=== PATIENT | male | born 1940 | race Caucasian/White ===

== ENCOUNTER 2025-08-18 11:32 | Inpatient (IN) | payer MEDICARE, BC ==
[~2025-08-18] VITALS: Ht 170.2 cm; Wt 78.0 kg
[2025-08-18] MEDS ORDERED: OLAN2.5T3 PO (12:06)
[2025-08-18] MEDS ORDERED: HYDR-894 PO (12:06)
[2025-08-18] MEDS ORDERED: INSU100V7 SQ (12:06)
[2025-08-18] MEDS ORDERED: METO25TA6 PO (12:06)
[2025-08-18] MEDS ORDERED: FINA5TAB11 PO (12:06)
[2025-08-18] MEDS ORDERED: DOCU100C36 PO (12:06)
[2025-08-18] MEDS ORDERED: BETH25TA2 PO (12:06)
[2025-08-18] MEDS ORDERED: TAMS-3 PO (12:06)
[2025-08-18] MEDS ORDERED: FERR220S6 PO (12:06)
[2025-08-18] MEDS ORDERED: ATOR10TA PO (12:06)
[2025-08-18] MEDS ORDERED: AMLO-212 PO (12:06)
[2025-08-18] MEDS ORDERED: APIX2.5T PO (12:06)
[2025-08-18] MEDS ORDERED: INSU100V SQ (12:06)
[2025-08-18] MEDS ORDERED: CEFTRIAXONE /D5W 50ML IVPB **ER PYXIS IV ONE (12:12)
[2025-08-18] MEDS: IV NORMAL SALINE 1000 ML BAG IV ONE (12:15)
[2025-08-18 12:16] LABS: ABG BASE EXCESS -1.4 mmol/L (-2.0-3.0); ABG HCO3 21.5 mmol/L (21.0-28.0); ABG PCO2 31.6 mmHg (35.0-48.0); ABG PH 7.451 (7.350-7.450); ABG PO2 85.5 mmHg (83.0-108.0); ABG SITE RIGHT RADIAL; ABG TOTAL HEMOGLOBIN 14.8 G/dL (13.5-17.5); AaDO2 97.0 mmHg; FIO2 21.0 %
[2025-08-18 12:21] LABS: PLATELET COUNT (AUTO) 213 K/uL (152-348); RED BLOOD CELL COUNT(AUTO) 5.01 MIL/uL (4.06-5.63); RED CELL DISTRIBUTION WIDTH 15.1 % (12.1-16.2); WHITE BLOOD COUNT (AUTO) 6.6 K/uL (3.6-10.2)
[2025-08-18 12:47] LABS: *BILIRUBIN,URIN NEGATIVE (NEGATIVE); *BLOOD, URINE 2+ (NEGATIVE); *CLARITY,URINE CLEAR (CLEAR); *COLOR,URINE YELLOW (YELLOW); *KETONES,URINE 1+ (NEGATIVE); *PROTEIN,URINE 1+ (NEGATIVE); *UROBILINOGEN,URINE 0.2 E.U./dl (NORMAL); LEUKOCYTE ESTERASE ,URINE TRACE (NEGATIVE); NITRITE, URINE NEGATIVE (NEGATIVE)
[2025-08-18 12:49] LABS: ASPARTATE AMINOTRANSFERASE 9 U/L (15-37); CREATININE 2.2 mg/dL (0.6-1.3); SODIUM SERUM 144 mmol/L (136-145); TOTAL PROTEIN, SERUM 8.1 g/dL (6.4-8.2); UREA NITROGEN, BLOOD 45 mg/dL (7-18)
[2025-08-18 12:50] LABS: LACTIC ACID 2.2 mmol/L (0.4-2.0)
[2025-08-18 12:54] LABS: UGLUCOSE 3+ (NEGATIVE)
[2025-08-18] MEDS ORDERED: INSULIN REGULAR, HUMAN 1000 UNIT/10 ML VIAL ONE (13:14)
[2025-08-18 13:15] LABS: SQUAMOUS EPITHELIAL CELL,UR FEW /HPF (NONE SEEN)
[2025-08-18 13:18] LABS: *OCCULT BLOOD STOOL POSITIVE (NEGATIVE)
[2025-08-18] MEDS: INSULIN REGULAR, HUMAN 1000 UNIT/10 ML VIAL IV ONE (13:18)
[2025-08-18] MEDS ORDERED: ONDANSETRON 4 MG/2 ML VIAL IV PRN (13:30)
[2025-08-18] MEDS ORDERED: ACETAMINOPHEN 325 MG TABLET PO PRN (13:30)
[2025-08-18] MEDS ORDERED: MAGNESIUM HYDROXIDE 30 ML LIQUID UDC PO PRN (13:30)
[2025-08-18] MEDS ORDERED: REMEDY ESSENTIAL ZINC PASTE 113 GM TP PRN (13:30)
[2025-08-18] MEDS ORDERED: DEXTROSE 50% 50 ML DISP.SYRIN IV PRN (14:00)
[2025-08-18] MEDS ORDERED: ALBU2.5V38 IH (14:31)
[2025-08-18] MEDS ORDERED: MULT-1045 PO (14:31)
[2025-08-18] MEDS ORDERED: CHOL-35 PO (14:31)
[2025-08-18] MEDS ORDERED: BISA10SU95 RC (14:31)
[2025-08-18] MEDS ORDERED: INSULIN GLARGINE,HUM 300 UNITS/3 ML CARTRIDGE SQ SCH (15:00)
[2025-08-18 15:40] VITALS: BP 128/73; TEMP 98.3
[2025-08-18 16:18] VITALS: BP 128/73; TEMP 98.3
[2025-08-18] MEDS: IV NS 1000 ML 1,000 ML IV PRN (16:29)
[2025-08-18] MEDS: BLOOD SUGAR DIAGNOSTIC 1 EACH STRIP VI SCH (16:38)
[2025-08-18] MEDS: INSULIN REGULAR, HUMAN 1000 UNIT/10 ML VIAL SQ PRN (16:45)
[2025-08-18] MEDS: INSULIN REGULAR, HUMAN 1000 UNIT/10 ML VIAL SQ SCH (17:00)
[2025-08-18] MEDS: CHOLECALCIFEROL 1,000 UNIT TABLET PO SCH (17:20)
[2025-08-18] MEDS: OLANZAPINE 2.5 MG TABLET PO SCH (17:21)
[2025-08-18] MEDS: METOPROLOL TARTRATE 25 MG TABLET PO SCH (17:21)
[2025-08-18] MEDS: TAMSULOSIN HCL 0.4 MG CAP.SR.24H PO SCH (17:21)
[2025-08-18] MEDS: DOCUSATE SODIUM 100 MG CAPSULE PO SCH (17:33)
[2025-08-18 17:52] LABS: PLATELET COUNT (AUTO) 195 K/uL (152-348); RED BLOOD CELL COUNT(AUTO) 4.62 MIL/uL (4.06-5.63); RED CELL DISTRIBUTION WIDTH 15.1 % (12.1-16.2); WHITE BLOOD COUNT (AUTO) 6.5 K/uL (3.6-10.2)
[2025-08-18] MEDS: BETHANECHOL CHLORIDE 25 MG TABLET GT SCH (18:18)
[2025-08-18 19:00] VITALS: BP 135/67; TEMP 97.5; O2SAT 96
[2025-08-18 19:50] LABS: BAND % (MANUAL) 1 % (0-10); EOSINOPHILS % (MANUAL) 1 % (0-8); LYMPHOCYTES % (MANUAL) 15 % (20-40); MONOCYTES % (MANUAL) 10 % (2-10); NEUTROPHILS % (MANUAL) 73 % (42-75); PLATELET ESTIMATE ADEQUATE
[2025-08-18] MEDS: PANTOPRAZOLE SODIUM 40 MG VIAL IV SCH (20:18)
[2025-08-18] MEDS: SUCRALFATE 1 G/10 ML LIQUID UDC GT SCH (20:19)
[2025-08-18] MEDS: ATORVASTATIN 10 MG TABLET PO SCH (20:19)
[2025-08-18] MEDS: INSULIN GLARGINE,HUM 300 UNITS/3 ML CARTRIDGE SQ SCH (20:26)
[2025-08-18] MEDS: INSULIN REGULAR, HUMAN 300 UNITS/3 ML VIAL SQ PRN (20:38)
[2025-08-19] VITALS: BP 123/71; TEMP 98; O2SAT 95
[2025-08-19 04:00] VITALS: BP 149/73; TEMP 97.7; O2SAT 95
[2025-08-19 06:13] LABS: PLATELET COUNT (AUTO) 179 K/uL (152-348); RED BLOOD CELL COUNT(AUTO) 4.29 MIL/uL (4.06-5.63); RED CELL DISTRIBUTION WIDTH 15.2 % (12.1-16.2); WHITE BLOOD COUNT (AUTO) 5.1 K/uL (3.6-10.2)
[2025-08-19 06:27] LABS: CREATININE 1.8 mg/dL (0.6-1.3); SODIUM SERUM 153 mmol/L (136-145); UREA NITROGEN, BLOOD 41 mg/dL (7-18)
[2025-08-19 08:00] VITALS: BP 145/78; TEMP 98.5; O2SAT 92
[2025-08-19] MEDS: MULTIVITAMINS,THERAPEUTIC TABLET PO SCH (08:42)
[2025-08-19] MEDS: FINASTERIDE 5 MG TABLET PO SCH (08:42)
[2025-08-19] MEDS: AMLODIPINE 5 MG TABLET PO SCH (08:43)
[2025-08-19 12:00] VITALS: BP 109/70; TEMP 97.5; O2SAT 93
[2025-08-19 16:14] VITALS: BP 137/68; TEMP 97.5; O2SAT 96
[2025-08-19 19:00] VITALS: BP 104/57; TEMP 97.7; O2SAT 96
[2025-08-19] MEDS: TRAZODONE 50 MG TABLET PO PRN (21:59)
[2025-08-20 04:30] VITALS: BP 138/81; TEMP 98.4; O2SAT 96
[2025-08-20 06:42] LABS: PLATELET COUNT (AUTO) 158 K/uL (152-348); RED BLOOD CELL COUNT(AUTO) 4.09 MIL/uL (4.06-5.63); RED CELL DISTRIBUTION WIDTH 15.4 % (12.1-16.2); WHITE BLOOD COUNT (AUTO) 4.7 K/uL (3.6-10.2)
[2025-08-20 06:54] LABS: CREATININE 1.5 mg/dL (0.6-1.3); SODIUM SERUM 149 mmol/L (136-145); UREA NITROGEN, BLOOD 39 mg/dL (7-18)
[2025-08-20 08:00] VITALS: BP 153/82; TEMP 98.7; O2SAT 96
[2025-08-20 11:41] VITALS: BP 120/78; TEMP 97.3; O2SAT 96
[2025-08-20] MEDS: IV 1/2NS 1000 ML 1,000 ML IV SCH (14:26)
[2025-08-20] MEDS: SUCRALFATE 1 G TABLET GT SCH (16:23)
[2025-08-20 16:39] VITALS: BP 138/79; TEMP 97.3; O2SAT 94
[2025-08-20] MEDS: BETHANECHOL CHLORIDE 25 MG TABLET PO SCH (17:58)
[2025-08-20 20:00] VITALS: BP 140/78; TEMP 98.1; O2SAT 93
[2025-08-20] MEDS: SUCRALFATE 1 G TABLET PO SCH (21:04)
[2025-08-21] VITALS: BP 137/76; TEMP 97.7; O2SAT 95
[2025-08-21 04:00] VITALS: BP 135/67; TEMP 98.8; O2SAT 95
[2025-08-21 06:28] LABS: PLATELET COUNT (AUTO) 141 K/uL (152-348); RED BLOOD CELL COUNT(AUTO) 3.61 MIL/uL (4.06-5.63); RED CELL DISTRIBUTION WIDTH 14.5 % (12.1-16.2); WHITE BLOOD COUNT (AUTO) 4.9 K/uL (3.6-10.2)
[2025-08-21 06:39] LABS: CREATININE 1.3 mg/dL (0.6-1.3); SODIUM SERUM 141 mmol/L (136-145); UREA NITROGEN, BLOOD 29 mg/dL (7-18)
[2025-08-21] MEDS: PANTOPRAZOLE SODIUM 40 MG TABLET.DR PO SCH (07:06)
[2025-08-21 08:00] VITALS: BP 156/79; TEMP 97.9; O2SAT 95
[2025-08-21 13:04] VITALS: BP 126/68; TEMP 97.5
[2025-08-21 17:21] VITALS: BP 147/80; TEMP 97.9; O2SAT 95
[2025-08-21] MEDS: IV 1/2NS 1000 ML 1,000 ML IV PRN (18:20)
[2025-08-21] MEDS: TRAZODONE 50 MG TABLET PO SCH (20:03)
[2025-08-21 20:21] VITALS: BP 127/81; TEMP 98.1; O2SAT 95
[2025-08-21] MEDS: QUETIAPINE FUMARATE 25 MG TABLET PO SCH (21:30)
[2025-08-21] MEDS: OLANZAPINE 10 MG VIAL IM PRN (21:49)
[2025-08-22 03:09] LABS: *MICROALBUMIN, UR 283.7 ug/mL (Not Estab.); CREATININE, URINE 139.2 mg/dL (Not Estab.); MICROALBUMIN/CREAT RATIO, UR 204.0 mg/g creat (0-29)
[2025-08-22 05:38] VITALS: BP 131/71; TEMP 98.5; O2SAT 96
[2025-08-22] MEDS: GLUCERNA SHAKE 237 ML CAN PO SCH (08:45)
[2025-08-22 08:49] VITALS: BP 156/80; TEMP 98; O2SAT 92
[2025-08-22 10:52] LABS: PLATELET COUNT (AUTO) 177 K/uL (152-348); RED BLOOD CELL COUNT(AUTO) 3.95 MIL/uL (4.06-5.63); RED CELL DISTRIBUTION WIDTH 14.8 % (12.1-16.2); WHITE BLOOD COUNT (AUTO) 5.6 K/uL (3.6-10.2)
[2025-08-22 10:59] LABS: CREATININE 1.3 mg/dL (0.6-1.3); SODIUM SERUM 142 mmol/L (136-145); UREA NITROGEN, BLOOD 24 mg/dL (7-18)
[2025-08-22] MEDS ORDERED: SULF1TAB48 PO (12:59)
[2025-08-22] MEDS ORDERED: SUCR1ORA PO (13:04)
[2025-08-22] MEDS ORDERED: PANT40TA2 PO (13:04)
[2025-08-22 15:14] VITALS: BP 131/86; TEMP 98; O2SAT 96
[2025-08-22 16:42] VITALS: BP 133/79
== END 2025-08-22 17:00 | DRG 871 ==
LOC: ER 11:32 → TELE3 15:04 → MEDSURG3 08-21 10:35
PROVIDERS: ADMIT Nurse Practitioner Acute Care; ATTEND Nurse Practitioner Acute Care
DX: A41.59 Other Gram-negative sepsis (principal); G93.41 Metabolic encephalopathy; E87.20 Acidosis, unspecified; E87.0 Hyperosmolality and hypernatremia; I24.89 Other forms of acute ischemic heart disease; E86.0 Dehydration; I48.91 Unspecified atrial fibrillation; E11.65 Type 2 diabetes mellitus with hyperglycemia; D50.9 Iron deficiency anemia, unspecified; N17.9 Acute kidney failure, unspecified; N39.0 Urinary tract infection, site not specified; R65.20 Severe sepsis without septic shock; Z79.01 Long term (current) use of anticoagulants; B96.1 Klebsiella pneumoniae [K. pneumoniae] as the cause of diseases classified elsewhere; I50.32 Chronic diastolic (congestive) heart failure; G20.A1 Parkinson's disease without dyskinesia, without mention of fluctuations; Z79.4 Long term (current) use of insulin; E86.1 Hypovolemia; Z95.0 Presence of cardiac pacemaker; R19.4 Change in bowel habit; I44.7 Left bundle-branch block, unspecified; Z79.899 Other long term (current) drug therapy; Z66 Do not resuscitate; Z78.1 Physical restraint status; K29.70 Gastritis, unspecified, without bleeding
CPT/HCPCS: 36415; 36600; 70030-TC; 70450; 71045; 82043; 82570; 83605; 83735; 84100; 84484; 85025; 85730; 86850; 86900; 86901; 87040; 87046; 87077; 87086; 89055; 93307; A4606; A4663; C1758; G0378; J0696; J1815; J2358; J2470; J7040

== ENCOUNTER 2025-09-06 13:19 | Inpatient (IN) | payer MEDICARE, BC ==
[~2025-09-06] VITALS: Ht 170.2 cm; Wt 77.1 kg
[~2025-09-06 13:19] MED LIST: ALBU2.5V38 IH; AMLO-212 PO; ATOR10TA PO; BETH25TA3 PO; CHOL-35 PO; DOCU100C36 PO; FERR220E3 PO; FINA5TAB11 PO; HYDR-5156 PO; INSU100V SQ; INSU100V7 SQ; METO25TA6 PO; MULT-1045 PO; PANT40TA2 PO; SUCR1ORA PO; SULF1TAB48 PO; TAMS0.4C PO; [UNRECOGNIZED DRUG - CODE] PO; [UNRECOGNIZED DRUG - CODE] RC
[2025-09-06] MEDS ORDERED: ACET-2154 PO (13:42)
[2025-09-06] MEDS ORDERED: LIDOCAINE 2% (GLYDO= UROJET) 10 ML JELLY MM ONE (14:01)
[2025-09-06 14:02] LABS: PLATELET COUNT (AUTO) 152 K/uL (152-348); RED BLOOD CELL COUNT(AUTO) 4.07 MIL/uL (4.06-5.63); RED CELL DISTRIBUTION WIDTH 15.3 % (12.1-16.2); WHITE BLOOD COUNT (AUTO) 6.2 K/uL (3.6-10.2)
[2025-09-06] MEDS ORDERED: CEFTRIAXONE /D5W 50ML IVPB **ER PYXIS IV ONE (14:02)
[2025-09-06] MEDS: IV NORMAL SALINE 1000 ML BAG IV ONE (14:05)
[2025-09-06 14:20] LABS: ASPARTATE AMINOTRANSFERASE 13 U/L (15-37); CREATININE 1.7 mg/dL (0.6-1.3); LACTIC ACID 2.8 mmol/L (0.4-2.0); SODIUM SERUM 138 mmol/L (136-145); TOTAL PROTEIN, SERUM 6.3 g/dL (6.4-8.2); UREA NITROGEN, BLOOD 33 mg/dL (7-18)
[2025-09-06 14:25] LABS: ABG BASE EXCESS -1.0 mmol/L (-2.0-3.0); ABG HCO3 23.0 mmol/L (21.0-28.0); ABG PCO2 36.0 mmHg (35.0-48.0); ABG PH 7.424 (7.350-7.450); ABG PO2 69.9 mmHg (83.0-108.0); ABG SITE RIGHT RADIAL; ABG TOTAL HEMOGLOBIN 11.7 G/dL (13.5-17.5); AaDO2 94.5 mmHg; FIO2 21.0 %
[2025-09-06 14:34] VITALS: BP 145/81
[2025-09-06 14:36] LABS: *BILIRUBIN,URIN NEGATIVE (NEGATIVE); *BLOOD, URINE 2+ (NEGATIVE); *COLOR,URINE YELLOW (YELLOW); *KETONES,URINE NEGATIVE (NEGATIVE); *PROTEIN,URINE 3+ (NEGATIVE); *UROBILINOGEN,URINE 0.2 E.U./dl (NORMAL); LEUKOCYTE ESTERASE ,URINE 1+ (NEGATIVE); NITRITE, URINE NEGATIVE (NEGATIVE); UGLUCOSE 2+ (NEGATIVE)
[2025-09-06 14:38] LABS: *CLARITY,URINE TURBID (CLEAR)
[2025-09-06 14:53] LABS: SQUAMOUS EPITHELIAL CELL,UR FEW /HPF (NONE SEEN)
[2025-09-06] MEDS ORDERED: ACETAMINOPHEN 650 MG SUPP.RECT RC PRN (15:30)
[2025-09-06] MEDS ORDERED: ENOXAPARIN SODIUM 40 MG/0.4 ML DISP.SYRIN SQ SCH (15:30)
[2025-09-06] MEDS ORDERED: BISACODYL 10 MG SUPP.RECT RC PRN (15:30)
[2025-09-06] MEDS ORDERED: IV NS 1000 ML 1,000 ML IV SCH (15:30)
[2025-09-06] MEDS ORDERED: ONDANSETRON 4 MG/2 ML VIAL IV PRN (15:30)
[2025-09-06] MEDS ORDERED: MAGNESIUM HYDROXIDE 30 ML LIQUID UDC PO PRN (15:30)
[2025-09-06] MEDS ORDERED: ALBUTEROL SULFATE 2.5 MG/3 ML NEBU IH PRN (15:30)
[2025-09-06] MEDS ORDERED: DEXTROSE 50% 50 ML DISP.SYRIN IV PRN (15:30)
[2025-09-06 16:35] VITALS: BP 148/82; TEMP 97.8; O2SAT 97
[2025-09-06] MEDS: BLOOD SUGAR DIAGNOSTIC 1 EACH STRIP VI SCH (17:39)
[2025-09-06] MEDS: INSULIN REGULAR, HUMAN 1000 UNIT/10 ML VIAL SQ PRN (17:40)
[2025-09-06] MEDS: OLANZAPINE 2.5 MG TABLET PO SCH (17:54)
[2025-09-06] MEDS: CHOLECALCIFEROL 1,000 UNIT TABLET PO SCH (17:54)
[2025-09-06] MEDS: DOCUSATE SODIUM 100 MG CAPSULE PO SCH (17:54)
[2025-09-06] MEDS: FERROUS SULFATE 325 MG TABEC PO SCH (17:55)
[2025-09-06] MEDS: METOPROLOL TARTRATE 25 MG TABLET PO SCH (17:55)
[2025-09-06] MEDS: TAMSULOSIN HCL 0.4 MG CAP.SR.24H PO SCH (17:55)
[2025-09-06] MEDS: BETHANECHOL CHLORIDE 25 MG TABLET PO SCH (17:55)
[2025-09-06 19:25] VITALS: BP 141/81; TEMP 98.5; O2SAT 96
[2025-09-06] MEDS: ATORVASTATIN 10 MG TABLET PO SCH (20:56)
[2025-09-06] MEDS ORDERED: DOXYCYCLINE HYCLATE IV 100 MG in IV DEXTROSE 5% 100 ML IV SCH (21:00)
[2025-09-06] MEDS: ENOXAPARIN SODIUM 30 MG/0.3 ML DISP.SYRIN SUBCUT SCH (21:01)
[2025-09-06 22:11] VITALS: O2SAT 96
[2025-09-07 01:14] VITALS: BP 104/65; TEMP 97.9; O2SAT 97
[2025-09-07 04:40] VITALS: BP 127/74; TEMP 97.8; O2SAT 97
[2025-09-07 06:41] LABS: PLATELET COUNT (AUTO) 143 K/uL (152-348); RED BLOOD CELL COUNT(AUTO) 3.67 MIL/uL (4.06-5.63); RED CELL DISTRIBUTION WIDTH 15.5 % (12.1-16.2); WHITE BLOOD COUNT (AUTO) 6.3 K/uL (3.6-10.2)
[2025-09-07 06:55] LABS: CREATININE 1.4 mg/dL (0.6-1.3); SODIUM SERUM 138 mmol/L (136-145); UREA NITROGEN, BLOOD 24 mg/dL (7-18)
[2025-09-07] MEDS: PANTOPRAZOLE SODIUM 40 MG TABLET.DR PO SCH (07:38)
[2025-09-07 07:53] VITALS: BP 142/73; TEMP 98.3; O2SAT 97
[2025-09-07] MEDS: MULTIVITAMINS,THERAPEUTIC TABLET PO SCH (08:33)
[2025-09-07] MEDS: FINASTERIDE 5 MG TABLET PO SCH (08:33)
[2025-09-07] MEDS: AMLODIPINE 5 MG TABLET PO SCH (08:33)
[2025-09-07] MEDS: TAMSULOSIN HCL 0.4 MG CAP.SR.24H PO SCH (08:35)
[2025-09-07] MEDS: METOPROLOL TARTRATE 25 MG TABLET PO SCH (08:35)
[2025-09-07] MEDS ORDERED: PANTOPRAZOLE SODIUM 40 MG VIAL IV SCH (09:00)
[2025-09-07] MEDS: LIDOCAINE 2% (GLYDO= UROJET) 10 ML JELLY MM ONE (10:22)
[2025-09-07] MEDS: MAGNESIUM OXIDE 400 MG TABLET PO ONE (10:22)
[2025-09-07 11:17] VITALS: BP 112/70; TEMP 98.5; O2SAT 97
[2025-09-07] MEDS ORDERED: FERR-68 PO (13:09)
[2025-09-07 15:29] VITALS: BP 116/77; TEMP 97.8; O2SAT 95
[2025-09-07 19:20] VITALS: BP 141/75; TEMP 98.3; O2SAT 95
[2025-09-07] MEDS: INSULIN GLARGINE,HUM 300 UNITS/3 ML CARTRIDGE SQ SCH (20:29)
[2025-09-07] MEDS ORDERED: ENOXAPARIN SODIUM 40 MG/0.4 ML DISP.SYRIN SQ SCH (21:00)
[2025-09-08 00:05] VITALS: BP 146/83; TEMP 99.1; O2SAT 95
[2025-09-08 05:35] VITALS: BP 141/79; TEMP 98.7; O2SAT 96
[2025-09-08 07:54] LABS: PLATELET COUNT (AUTO) 129 K/uL (152-348); RED BLOOD CELL COUNT(AUTO) 3.60 MIL/uL (4.06-5.63); RED CELL DISTRIBUTION WIDTH 15.2 % (12.1-16.2); WHITE BLOOD COUNT (AUTO) 6.0 K/uL (3.6-10.2)
[2025-09-08 08:02] VITALS: BP 134/77; TEMP 98.4; O2SAT 96
[2025-09-08 08:09] LABS: CREATININE 1.1 mg/dL (0.6-1.3); SODIUM SERUM 138 mmol/L (136-145); UREA NITROGEN, BLOOD 20 mg/dL (7-18)
[2025-09-08 11:44] VITALS: BP 121/72; TEMP 98; O2SAT 98
[2025-09-08] MEDS: MAGNESIUM OXIDE 400 MG TABLET PO ONE (12:19)
[2025-09-08 15:04] VITALS: O2SAT 96
[2025-09-08 15:45] VITALS: BP 145/87; TEMP 98.5; O2SAT 98
[2025-09-08] MEDS ORDERED: CEFT1FRO2 IV (18:57)
[2025-09-08] MEDS ORDERED: MAGN400O6 PO (19:13)
== END 2025-09-08 18:33 | DRG 871 ==
LOC: ER 13:19 → TELE3 16:11 → MEDSURG3 09-08 10:25
DX: A41.59 Other Gram-negative sepsis (principal); G93.41 Metabolic encephalopathy; I21.A1 Myocardial infarction type 2; E44.0 Moderate protein-calorie malnutrition; F02.82 Dementia in other diseases classified elsewhere, unspecified severity, with psychotic disturbance; S09.90XA Unspecified injury of head, initial encounter; G20.A1 Parkinson's disease without dyskinesia, without mention of fluctuations; E11.65 Type 2 diabetes mellitus with hyperglycemia; D64.9 Anemia, unspecified; N39.0 Urinary tract infection, site not specified; R65.20 Severe sepsis without septic shock; B96.1 Klebsiella pneumoniae [K. pneumoniae] as the cause of diseases classified elsewhere; I11.0 Hypertensive heart disease with heart failure; I50.32 Chronic diastolic (congestive) heart failure; Z86.74 Personal history of sudden cardiac arrest; Z79.4 Long term (current) use of insulin; Z79.899 Other long term (current) drug therapy; I48.91 Unspecified atrial fibrillation; Z95.0 Presence of cardiac pacemaker; Z85.46 Personal history of malignant neoplasm of prostate; E86.0 Dehydration; W18.30XA Fall on same level, unspecified, initial encounter; Z91.81 History of falling; Y92.099 Unspecified place in other non-institutional residence as the place of occurrence of the external cause; R79.89 Other specified abnormal findings of blood chemistry; Z87.19 Personal history of other diseases of the digestive system
CPT/HCPCS: 36415; 36600; 70450; 71045; 72125; 83605; 83735; 84100; 84484; 85025; 85730; 87040; 87077; 87086; A4606; A4663; G0378; J0696; J1650; J1815; J7040

== ENCOUNTER 2025-09-08 14:58 | Inpatient (IN) | payer MEDICARE, BC ==
[~2025-09-08] VITALS: Ht 165.1 cm; Wt 64.9 kg
[~2025-09-08 14:58] MED LIST changes: +ACET-2154 PO; +FERR-68 PO; -FERR220E3 PO; -SUCR1ORA PO; -SULF1TAB48 PO
[2025-09-08 16:14] VITALS: BP 145/87; TEMP 98.5
[2025-09-08 16:34] VITALS: BP 145/87; TEMP 98.5
[2025-09-08 18:50] VITALS: BP 127/70; TEMP 97.7; O2SAT 95
[2025-09-08] MEDS ORDERED: CEFT1FRO2 IV (18:57)
[2025-09-08] MEDS ORDERED: MAGN400O6 PO (19:13)
[2025-09-08] MEDS ORDERED: ALBUTEROL SULFATE 2.5 MG/3 ML NEBU IH PRN (19:15)
[2025-09-08] MEDS ORDERED: BISACODYL 10 MG SUPP.RECT RC PRN (19:15)
[2025-09-08 20:00] VITALS: BP 133/74; TEMP 97.5; O2SAT 96
[2025-09-08] MEDS: ATORVASTATIN 10 MG TABLET PO SCH (20:42)
[2025-09-08] MEDS: INSULIN GLARGINE,HUM 300 UNITS/3 ML CARTRIDGE SQ SCH (20:49)
[2025-09-09 06:00] VITALS: BP 146/86; TEMP 97.7; O2SAT 96
[2025-09-09] MEDS: METOPROLOL TARTRATE 25 MG TABLET PO SCH ×2 (09:32→21:13)
[2025-09-09] MEDS: FERROUS SULFATE 325 MG TABEC PO SCH (09:32)
[2025-09-09] MEDS: DOCUSATE SODIUM 100 MG CAPSULE PO SCH (09:32)
[2025-09-09] MEDS: TAMSULOSIN HCL 0.4 MG CAP.SR.24H PO SCH (09:32)
[2025-09-09 09:33] VITALS: BP 151/81; TEMP 98.4; O2SAT 96
[2025-09-09] MEDS: PANTOPRAZOLE SODIUM 40 MG TABLET.DR PO SCH (09:33)
[2025-09-09] MEDS: CHOLECALCIFEROL 1,000 UNIT TABLET PO SCH (09:33)
[2025-09-09] MEDS: FINASTERIDE 5 MG TABLET PO SCH (09:33)
[2025-09-09] MEDS: OLANZAPINE 2.5 MG TABLET PO SCH (09:33)
[2025-09-09] MEDS: MULTIVITAMINS,THERAPEUTIC TABLET PO SCH (09:33)
[2025-09-09] MEDS: AMLODIPINE 5 MG TABLET PO SCH (09:33)
[2025-09-09] MEDS: BETHANECHOL CHLORIDE 25 MG TABLET PO SCH (09:38)
[2025-09-09] MEDS ORDERED: CEFTRIAXONE 500 MG VIAL IV SCH (14:00)
[2025-09-09 18:00] VITALS: BP 148/78; TEMP 98.6; O2SAT 96
[2025-09-09 20:41] VITALS: BP 134/77; TEMP 98.6; O2SAT 96
[2025-09-09] MEDS ORDERED: DEXTROSE 50% 50 ML DISP.SYRIN IV PRN (22:00)
[2025-09-09] MEDS: BLOOD SUGAR DIAGNOSTIC 1 EACH STRIP VI SCH (22:13)
[2025-09-09] MEDS: INSULIN REGULAR, HUMAN 1000 UNIT/10 ML VIAL SQ PRN (22:17)
[2025-09-10] MEDS: PANTOPRAZOLE SODIUM 40 MG TABLET.DR PO SCH (06:21)
[2025-09-10 06:57] VITALS: BP 134/78; TEMP 98.6; O2SAT 96
[2025-09-10 07:56] VITALS: BP 128/76; TEMP 97.6; O2SAT 98
[2025-09-10] MEDS: INSULIN REGULAR, HUMAN 1000 UNIT/10 ML VIAL SQ ONE (14:35)
[2025-09-10] MEDS ORDERED: INSULIN REGULAR, HUMAN 1000 UNIT/10 ML VIAL SQ ONE (15:30)
[2025-09-10 16:00] VITALS: BP 136/77; TEMP 97.6; O2SAT 96
[2025-09-10] MEDS: BLOOD SUGAR DIAGNOSTIC 1 EACH STRIP VI SCH (17:17)
[2025-09-10 22:07] VITALS: BP 129/73; TEMP 98.4; O2SAT 96
[2025-09-10] MEDS: INSULIN REGULAR, HUMAN 300 UNITS/3 ML VIAL SQ PRN (22:15)
[2025-09-11 06:46] VITALS: BP 113/68; TEMP 97.8; O2SAT 95
[2025-09-11 08:00] VITALS: BP 141/97; TEMP 97.7; O2SAT 97
[2025-09-11] MEDS: INSULIN REGULAR, HUMAN 1000 UNIT/10 ML VIAL SQ PRN (09:47)
[2025-09-11 17:00] VITALS: BP 130/73; TEMP 97.7; O2SAT 100
[2025-09-11 19:42] VITALS: BP 140/73; TEMP 98; O2SAT 96
[2025-09-11] MEDS: INSULIN GLARGINE,HUM 300 UNITS/3 ML CARTRIDGE SQ SCH (20:15)
[2025-09-11] MEDS ORDERED: INSULIN GLARGINE,HUM 300 UNITS/3 ML CARTRIDGE SQ SCH (21:00)
[2025-09-12 06:21] VITALS: BP 143/82; TEMP 98.1; O2SAT 96
[2025-09-12 08:05] VITALS: BP 138/73; TEMP 98.4; O2SAT 96
[2025-09-12] MEDS: MAGNESIUM HYDROXIDE 30 ML LIQUID UDC PO PRN (12:19)
[2025-09-12 16:04] VITALS: BP 134/65; TEMP 98.2; O2SAT 98
[2025-09-12 23:05] VITALS: BP 117/62; TEMP 98.2; O2SAT 94
[2025-09-13 06:38] VITALS: BP 144/84; TEMP 99.7; O2SAT 93
[2025-09-13 07:04] LABS: PLATELET COUNT (AUTO) 151 K/uL (152-348); RED BLOOD CELL COUNT(AUTO) 3.79 MIL/uL (4.06-5.63); RED CELL DISTRIBUTION WIDTH 15.0 % (12.1-16.2); WHITE BLOOD COUNT (AUTO) 4.6 K/uL (3.6-10.2)
[2025-09-13 07:20] LABS: CREATININE 1.4 mg/dL (0.6-1.3); SODIUM SERUM 137 mmol/L (136-145); UREA NITROGEN, BLOOD 23 mg/dL (7-18)
[2025-09-13 08:05] VITALS: BP 136/79; TEMP 97.6; O2SAT 97
[2025-09-13 08:31] LABS: BASOPHILS % (MANUAL) 1 % (0-2); EOSINOPHILS % (MANUAL) 5 % (0-8); LYMPHOCYTES % (MANUAL) 10 % (20-40); MONOCYTES % (MANUAL) 17 % (2-10); NEUTROPHILS % (MANUAL) 68 % (42-75); PLATELET ESTIMATE DECREASED
[2025-09-13 16:13] VITALS: BP 154/81; TEMP 98; O2SAT 98
[2025-09-13 20:00] VITALS: BP 135/60; TEMP 100.6; O2SAT 93
[2025-09-13 22:47] VITALS: BP 137/89; TEMP 99.2; O2SAT 92
[2025-09-14] MEDS ORDERED: ACETAMINOPHEN 325 MG TABLET PO PRN (00:15)
[2025-09-14 06:03] VITALS: BP 149/84; TEMP 98.4; O2SAT 93
[2025-09-14 08:24] VITALS: BP 126/83; TEMP 97.7; O2SAT 98
[2025-09-14 16:04] VITALS: BP 122/71; TEMP 97.6; O2SAT 97
[2025-09-14 21:06] VITALS: BP 125/69; TEMP 97.9; O2SAT 94
[2025-09-15 06:13] VITALS: BP 121/73; TEMP 97.4; O2SAT 94
[2025-09-15 08:00] VITALS: BP 109/62; TEMP 98.1; O2SAT 97
[2025-09-15] MEDS: MODAFINIL 100 MG TABLET PO SCH (08:25)
[2025-09-15 17:00] VITALS: BP 121/65; TEMP 97.8; O2SAT 96
[2025-09-15 19:55] VITALS: BP 138/79; TEMP 96.5; O2SAT 96
[2025-09-16 05:14] VITALS: BP 140/70; TEMP 97.4; O2SAT 95
[2025-09-16 08:00] VITALS: BP 140/71; TEMP 98; O2SAT 96
[2025-09-16 19:56] VITALS: BP 123/64; TEMP 97.7; O2SAT 96
[2025-09-17 06:00] VITALS: BP 151/64; TEMP 99.2; O2SAT 95
[2025-09-17 08:39] VITALS: BP 126/65; TEMP 97.8; O2SAT 95
[2025-09-17 19:43] VITALS: BP 106/73; TEMP 98.5; O2SAT 95
[2025-09-17 21:22] VITALS: BP 128/64
[2025-09-17 22:44] VITALS: BP 134/73
[2025-09-18 05:50] VITALS: BP 156/82; O2SAT 94
[2025-09-18 06:41] VITALS: BP 156/82; TEMP 98.5; O2SAT 94
[2025-09-18 07:52] VITALS: BP_SYST 153; BP_DIAS 68; BP_DIAS 78; TEMP 98; O2SAT 97
[2025-09-18 08:00] VITALS: BP 164/85; TEMP 98.7; O2SAT 97
[2025-09-18 15:47] LABS: PLATELET COUNT (AUTO) 167 K/uL (152-348); RED BLOOD CELL COUNT(AUTO) 3.77 MIL/uL (4.06-5.63); RED CELL DISTRIBUTION WIDTH 14.6 % (12.1-16.2); WHITE BLOOD COUNT (AUTO) 7.4 K/uL (3.6-10.2)
[2025-09-18 16:00] VITALS: BP 156/88; TEMP 98.5; O2SAT 97
[2025-09-18 16:01] LABS: *BLOOD, URINE 3+ (NEGATIVE); *CLARITY,URINE SLIGHTLY CLOUDY (CLEAR); *COLOR,URINE RED (YELLOW); *KETONES,URINE TRACE (NEGATIVE); *UROBILINOGEN,URINE 1.0 E.U./dl (NORMAL); LEUKOCYTE ESTERASE ,URINE TRACE (NEGATIVE); NITRITE, URINE NEGATIVE (NEGATIVE)
[2025-09-18 16:02] LABS: *BILIRUBIN,URIN 1+ (NEGATIVE); *PROTEIN,URINE 3+ (NEGATIVE); UGLUCOSE 2+ (NEGATIVE)
[2025-09-18 16:02] LABS: ASPARTATE AMINOTRANSFERASE 12 U/L (15-37); CREATININE 1.6 mg/dL (0.6-1.3); SODIUM SERUM 133 mmol/L (136-145); TOTAL PROTEIN, SERUM 6.5 g/dL (6.4-8.2); UREA NITROGEN, BLOOD 32 mg/dL (7-18)
[2025-09-18 19:30] VITALS: BP 151/81; TEMP 98.2; O2SAT 97
[2025-09-18] MEDS: TRAZODONE 50 MG TABLET PO SCH (20:26)
[2025-09-19 06:00] VITALS: BP 151/76; TEMP 98; O2SAT 97
[2025-09-19] MEDS: DEXTROSE 50% 50 ML DISP.SYRIN IV PRN (06:44)
[2025-09-19 07:55] VITALS: BP 149/59; TEMP 98; O2SAT 94
[2025-09-19 11:47] VITALS: BP 129/101; TEMP 99.8; O2SAT 96
[2025-09-19 14:53] LABS: *BILIRUBIN,URIN 1+ (NEGATIVE); *BLOOD, URINE 3+ (NEGATIVE); *CLARITY,URINE SLIGHTLY CLOUDY (CLEAR); *COLOR,URINE DARK YELLOW (YELLOW); *KETONES,URINE NEGATIVE (NEGATIVE); *PROTEIN,URINE 3+ (NEGATIVE); *UROBILINOGEN,URINE 0.2 E.U./dl (NORMAL); LEUKOCYTE ESTERASE ,URINE 1+ (NEGATIVE); NITRITE, URINE NEGATIVE (NEGATIVE); UGLUCOSE TRACE (NEGATIVE)
[2025-09-19 15:15] LABS: SQUAMOUS EPITHELIAL CELL,UR FEW /HPF (NONE SEEN)
[2025-09-19 20:14] VITALS: BP 138/79; TEMP 98.3; O2SAT 94
[2025-09-20 06:30] VITALS: BP 143/98; TEMP 98.4; O2SAT 94
[2025-09-20 06:30] LABS: PLATELET COUNT (AUTO) 198 K/uL (152-348); RED BLOOD CELL COUNT(AUTO) 3.98 MIL/uL (4.06-5.63); RED CELL DISTRIBUTION WIDTH 14.8 % (12.1-16.2); WHITE BLOOD COUNT (AUTO) 9.6 K/uL (3.6-10.2)
[2025-09-20 06:45] LABS: ASPARTATE AMINOTRANSFERASE 14 U/L (15-37); CREATININE 1.4 mg/dL (0.6-1.3); SODIUM SERUM 136 mmol/L (136-145); TOTAL PROTEIN, SERUM 7.0 g/dL (6.4-8.2); UREA NITROGEN, BLOOD 27 mg/dL (7-18)
[2025-09-20 08:17] VITALS: BP 138/80
[2025-09-20] MEDS ORDERED: MAGNESIUM OXIDE 400 MG TABLET PO ONE (11:00)
[2025-09-20] MEDS ORDERED: NEUTRA PHOS PACKET PO ONE (11:30)
[2025-09-20 12:09] LABS: PLATELET COUNT (AUTO) 191 K/uL (152-348); RED BLOOD CELL COUNT(AUTO) 3.56 MIL/uL (4.06-5.63); RED CELL DISTRIBUTION WIDTH 14.6 % (12.1-16.2); WHITE BLOOD COUNT (AUTO) 11.2 K/uL (3.6-10.2)
[2025-09-20 12:26] LABS: ASPARTATE AMINOTRANSFERASE 21 U/L (15-37); CREATININE 1.4 mg/dL (0.6-1.3); SODIUM SERUM 136 mmol/L (136-145); TOTAL PROTEIN, SERUM 6.5 g/dL (6.4-8.2); UREA NITROGEN, BLOOD 30 mg/dL (7-18)
[2025-09-20] MEDS ORDERED: ACET-3752 PO (14:15)
[2025-09-20] MEDS ORDERED: [UNRECOGNIZED DRUG - CODE] METER (14:16)
[2025-09-20] MEDS ORDERED: DEXT50DI5 IV (14:23)
[2025-09-20] MEDS ORDERED: INSU100V28 SQ (14:25)
[2025-09-20] MEDS ORDERED: MODA100T29 PO (14:28)
[2025-09-20] MEDS ORDERED: TRAZ-182 PO (14:29)
== END 2025-09-20 11:57 | disposition short-term general hospital (02) | DRG 871 ==
PROVIDERS: ADMIT Physical Medicine & Rehabilitation Pain Medicine; ATTEND Physical Medicine & Rehabilitation Pain Medicine
DX: A41.9 Sepsis, unspecified organism (principal); G93.41 Metabolic encephalopathy; I21.A1 Myocardial infarction type 2; E44.0 Moderate protein-calorie malnutrition; I50.32 Chronic diastolic (congestive) heart failure; G20.A1 Parkinson's disease without dyskinesia, without mention of fluctuations; E11.22 Type 2 diabetes mellitus with diabetic chronic kidney disease; D64.9 Anemia, unspecified; N17.9 Acute kidney failure, unspecified; N39.0 Urinary tract infection, site not specified; B96.89 Other specified bacterial agents as the cause of diseases classified elsewhere; I13.0 Hypertensive heart and chronic kidney disease with heart failure and stage 1 through stage 4 chronic kidney disease, or unspecified chronic kidney disease; N18.9 Chronic kidney disease, unspecified; E86.0 Dehydration; E11.65 Type 2 diabetes mellitus with hyperglycemia; Z79.4 Long term (current) use of insulin; Z85.46 Personal history of malignant neoplasm of prostate; Z86.74 Personal history of sudden cardiac arrest; Z86.73 Personal history of transient ischemic attack (TIA), and cerebral infarction without residual deficits; Z91.81 History of falling; R53.1 Weakness
CPT/HCPCS: 36415; 70030-TC; 71045; 76770; 83735; 84100; 85025; 87040; 87077; 87086; 97535-GO-CO; A4663; J0696; J1815; J3490; J7040

== ENCOUNTER 2025-09-20 12:17 | Inpatient (IN) | payer MEDICARE, BC ==
[~2025-09-20] VITALS: Ht 165.1 cm; Wt 73.6 kg
[2025-09-20 08:00] VITALS: BP 138/80; TEMP 97.8
[~2025-09-20 12:17] MED LIST changes: -ACET-2154 PO; +CEFT1FRO2 IV; +MAGN400O6 PO
[2025-09-20 12:30] VITALS: BP 150/78; TEMP 99.8
[2025-09-20] MEDS ORDERED: ACET-3752 PO (14:15)
[2025-09-20] MEDS ORDERED: [UNRECOGNIZED DRUG - CODE] METER (14:16)
[2025-09-20] MEDS ORDERED: DEXT50DI5 IV (14:23)
[2025-09-20] MEDS ORDERED: INSU100V28 SQ (14:25)
[2025-09-20] MEDS ORDERED: MODA100T29 PO (14:28)
[2025-09-20] MEDS ORDERED: TRAZ-182 PO (14:29)
[2025-09-20 15:45] VITALS: BP 112/65; TEMP 99.8; O2SAT 98
[2025-09-20] MEDS ORDERED: ONDANSETRON 4 MG/2 ML VIAL IV PRN (16:30)
[2025-09-20] MEDS ORDERED: MAGNESIUM HYDROXIDE 30 ML LIQUID UDC PO PRN ×2 (16:30→17:00)
[2025-09-20] MEDS ORDERED: REMEDY ESSENTIAL ZINC PASTE 113 GM TP PRN (16:30)
[2025-09-20] MEDS ORDERED: ZOLPIDEM 5 MG TABLET PO PRN (16:30)
[2025-09-20] MEDS ORDERED: ACETAMINOPHEN 325 MG TABLET PO PRN (16:30)
[2025-09-20] MEDS ORDERED: PIPERACILLIN SODIUM/TAZOBACTAM 3.375 G in IV DEXTROSE 5% 50 ML IV SCH (16:30)
[2025-09-20] MEDS ORDERED: ACETAMINOPHEN 325 MG TABLET-SA PATIENTS-PAIN ONLY PO PRN (17:00)
[2025-09-20] MEDS ORDERED: ALBUTEROL SULFATE 2.5 MG/3 ML NEBU NEB PRN (17:00)
[2025-09-20] MEDS ORDERED: DEXTROSE 50% 50 ML DISP.SYRIN IV PRN ×2 (17:00→21:15)
[2025-09-20] MEDS ORDERED: BISACODYL 10 MG SUPP.RECT RC PRN (17:00)
[2025-09-20] MEDS: PIPERACILLIN SODIUM/TAZOBACTAM 3.375 G in IV DEXTROSE 5% 100 ML IV SCH (17:16)
[2025-09-20] MEDS: FERROUS SULFATE 325 MG TABEC PO SCH (17:26)
[2025-09-20] MEDS: CHOLECALCIFEROL 1,000 UNIT TABLET PO SCH (17:27)
[2025-09-20] MEDS: DOCUSATE SODIUM 100 MG CAPSULE PO SCH (17:27)
[2025-09-20] MEDS: BETHANECHOL CHLORIDE 25 MG TABLET PO SCH (17:27)
[2025-09-20] MEDS: OLANZAPINE 2.5 MG TABLET PO SCH (17:27)
[2025-09-20] MEDS: TAMSULOSIN HCL 0.4 MG CAP.SR.24H PO SCH (17:27)
[2025-09-20 19:00] VITALS: BP 128/69; TEMP 98.2; O2SAT 96
[2025-09-20] MEDS: METOPROLOL TARTRATE 25 MG TABLET PO SCH (20:56)
[2025-09-20] MEDS: BLOOD SUGAR DIAGNOSTIC 1 EACH STRIP VI SCH (20:56)
[2025-09-20] MEDS: TRAZODONE 50 MG TABLET PO SCH (20:56)
[2025-09-20] MEDS: ATORVASTATIN 10 MG TABLET PO SCH (20:56)
[2025-09-20] MEDS: HEPARIN SODIUM,PORCINE 5,000 UNITS/ML VIAL SQ SCH (21:09)
[2025-09-20] MEDS: INSULIN REGULAR, HUMAN 300 UNITS/3 ML VIAL SQ PRN (21:15)
[2025-09-20 21:35] VITALS: O2SAT 98
[2025-09-21] MEDS: PANTOPRAZOLE SODIUM 40 MG TABLET.DR PO SCH (06:37)
[2025-09-21] MEDS: BLOOD SUGAR DIAGNOSTIC 1 EACH STRIP VI SCH (06:38)
[2025-09-21 06:52] VITALS: BP 122/72; TEMP 98.4; O2SAT 96
[2025-09-21 07:10] LABS: PLATELET COUNT (AUTO) 202 K/uL (152-348); RED BLOOD CELL COUNT(AUTO) 3.47 MIL/uL (4.06-5.63); RED CELL DISTRIBUTION WIDTH 14.9 % (12.1-16.2); WHITE BLOOD COUNT (AUTO) 6.5 K/uL (3.6-10.2)
[2025-09-21 07:20] LABS: CREATININE 1.6 mg/dL (0.6-1.3); SODIUM SERUM 138 mmol/L (136-145); UREA NITROGEN, BLOOD 38 mg/dL (7-18)
[2025-09-21 07:34] VITALS: BP 95/54; TEMP 98.7; O2SAT 95
[2025-09-21] MEDS: FINASTERIDE 5 MG TABLET PO SCH (08:32)
[2025-09-21] MEDS: MODAFINIL 100 MG TABLET PO SCH (08:32)
[2025-09-21] MEDS: INSULIN REGULAR, HUMAN 1000 UNIT/10 ML VIAL SQ PRN (08:33)
[2025-09-21] MEDS: MULTIVITAMINS,THERAPEUTIC TABLET PO SCH (08:33)
[2025-09-21] MEDS: AMLODIPINE 5 MG TABLET PO SCH (09:00)
[2025-09-21 11:54] VITALS: BP 101/59; TEMP 98.5; O2SAT 96
[2025-09-21 16:08] VITALS: BP 119/75; TEMP 98; O2SAT 96
[2025-09-21] MEDS ORDERED: DIATR MEGLU/DIATRIZOATE SODIUM 30 ML BOTTLE ONE ×2 (16:37→17:37)
[2025-09-21] MEDS: IV 1/2NS 1000 ML 1,000 ML IV SCH (16:39)
[2025-09-21 19:45] VITALS: BP 104/69; TEMP 98.3; O2SAT 93
[2025-09-22 04:00] VITALS: BP 137/74; TEMP 98.4; O2SAT 95
[2025-09-22 07:12] LABS: PLATELET COUNT (AUTO) 220 K/uL (152-348); RED BLOOD CELL COUNT(AUTO) 3.31 MIL/uL (4.06-5.63); RED CELL DISTRIBUTION WIDTH 15.0 % (12.1-16.2); WHITE BLOOD COUNT (AUTO) 5.7 K/uL (3.6-10.2)
[2025-09-22 07:26] LABS: CREATININE 1.7 mg/dL (0.6-1.3); SODIUM SERUM 140 mmol/L (136-145); UREA NITROGEN, BLOOD 41 mg/dL (7-18)
[2025-09-22 08:00] VITALS: BP 140/68; TEMP 97.9; O2SAT 98
[2025-09-22] MEDS: NEOMY/BACITRAC/POLYMI OINT 28.35 GM TUBE TOP SCH (13:04)
[2025-09-22 16:00] VITALS: BP 132/75; TEMP 97.8; O2SAT 97
[2025-09-22 20:00] VITALS: BP 123/69; TEMP 98.1; O2SAT 96
[2025-09-23 05:14] LABS: PLATELET COUNT (AUTO) 211 K/uL (152-348); RED BLOOD CELL COUNT(AUTO) 3.13 MIL/uL (4.06-5.63); RED CELL DISTRIBUTION WIDTH 14.5 % (12.1-16.2); WHITE BLOOD COUNT (AUTO) 5.1 K/uL (3.6-10.2)
[2025-09-23 05:27] LABS: CREATININE 1.3 mg/dL (0.6-1.3); SODIUM SERUM 134 mmol/L (136-145); UREA NITROGEN, BLOOD 34 mg/dL (7-18)
[2025-09-23 06:00] VITALS: BP 157/83; TEMP 98.1; O2SAT 96
[2025-09-23 12:00] VITALS: BP 150/76; TEMP 98.2; O2SAT 98
[2025-09-23 16:07] VITALS: BP 147/75; TEMP 98.2; O2SAT 98
[2025-09-23] MEDS: NEUTRA PHOS PACKET PO ONE (16:21)
[2025-09-23] MEDS: IV NS 1000 ML 1,000 ML IV PRN (18:19)
[2025-09-23 20:00] VITALS: BP 145/75; TEMP 98.8; O2SAT 94
[2025-09-23] MEDS: INSULIN REGULAR, HUMAN 1000 UNIT/10 ML VIAL SQ ONE (23:04)
[2025-09-24 05:21] VITALS: BP 152/80; TEMP 98.5; O2SAT 96
[2025-09-24 07:28] LABS: PLATELET COUNT (AUTO) 231 K/uL (152-348); RED BLOOD CELL COUNT(AUTO) 3.14 MIL/uL (4.06-5.63); RED CELL DISTRIBUTION WIDTH 14.6 % (12.1-16.2); WHITE BLOOD COUNT (AUTO) 6.8 K/uL (3.6-10.2)
[2025-09-24 07:30] VITALS: BP 148/79; TEMP 98.3; O2SAT 95
[2025-09-24 07:52] LABS: CREATININE 1.3 mg/dL (0.6-1.3); SODIUM SERUM 140 mmol/L (136-145); UREA NITROGEN, BLOOD 26 mg/dL (7-18)
[2025-09-24 12:26] VITALS: BP 117/59; TEMP 97.8; O2SAT 96
[2025-09-24] MEDS: INSULIN REGULAR, HUMAN 1000 UNIT/10 ML VIAL SQ ONE (17:37)
[2025-09-24 18:29] VITALS: BP 135/76; TEMP 97.9; O2SAT 96
[2025-09-24 21:53] VITALS: BP 129/72; TEMP 97.9; O2SAT 96
[2025-09-25 06:09] VITALS: BP 158/80; TEMP 97.3; O2SAT 96
[2025-09-25] MEDS: ACIDOPHILUS/BULGARICUS CHEW TAB PO SCH (08:32)
[2025-09-25 11:38] VITALS: BP 134/77; TEMP 98.4; O2SAT 96
[2025-09-25] MEDS ORDERED: Acidophilus/Bulgaricus PO (15:07)
[2025-09-25] MEDS ORDERED: LINE600T12 PO (15:07)
[2025-09-25 15:25] VITALS: BP 129/74; TEMP 98.4; O2SAT 97
[2025-09-25 22:36] VITALS: BP 137/74; TEMP 97.6; O2SAT 97
[2025-09-26 06:44] VITALS: BP 168/91; TEMP 98; O2SAT 98
[2025-09-26] MEDS ORDERED: DOCUSATE SODIUM 100 MG CAPSULE PO SCH (09:15)
[2025-09-26] MEDS: LINEZOLID 600 MG TABLET PO SCH (10:00)
[2025-09-26 10:11] VITALS: BP 113/65; TEMP 98.1; O2SAT 93
[2025-09-26 14:30] VITALS: BP 113/65; TEMP 98.1; O2SAT 93
[2025-09-26] MEDS ORDERED: SENNOSIDES 1 TABLET PO SCH (21:00)
== END 2025-09-26 15:40 | disposition home health service (06) | DRG 871 ==
LOC: MEDSURG3 12:17
PROVIDERS: ADMIT Student in an Organized Health Care Education/Training Program; ATTEND Student in an Organized Health Care Education/Training Program
DX: A41.81 Sepsis due to Enterococcus (principal); G93.41 Metabolic encephalopathy; N17.0 Acute kidney failure with tubular necrosis; J15.69 Pneumonia due to other Gram-negative bacteria; K56.609 Unspecified intestinal obstruction, unspecified as to partial versus complete obstruction; E44.0 Moderate protein-calorie malnutrition; G20.A1 Parkinson's disease without dyskinesia, without mention of fluctuations; E11.65 Type 2 diabetes mellitus with hyperglycemia; D64.9 Anemia, unspecified; N39.0 Urinary tract infection, site not specified; A41.50 Gram-negative sepsis, unspecified; I11.0 Hypertensive heart disease with heart failure; K56.7 Ileus, unspecified; I50.32 Chronic diastolic (congestive) heart failure; E87.1 Hypo-osmolality and hyponatremia; F99 Mental disorder, not otherwise specified; R41.82 Altered mental status, unspecified; Z85.46 Personal history of malignant neoplasm of prostate; Z86.74 Personal history of sudden cardiac arrest; Z95.0 Presence of cardiac pacemaker; I25.10 Atherosclerotic heart disease of native coronary artery without angina pectoris; Z79.4 Long term (current) use of insulin; Z86.73 Personal history of transient ischemic attack (TIA), and cerebral infarction without residual deficits
CPT/HCPCS: 36415; 70450; 74018; 74250; 83735; 84100; 84443; 85025; 87040; A4663; A6213; G0378; J1644; J1815; J2543; J7040; Q9963